=== PATIENT | female | born 1985 | race African-American/Black ===

== ENCOUNTER 2017-10-05 12:57 | Emergency (ER) | payer MEDICAID ==
[~2017-10-05 12:57] MED LIST: DICL75 PO; HYDR-3533 PO
[2017-10-05] MEDS ORDERED: ONDANSETRON ODT 4 MG TAB PO PRN (15:15)
[2017-10-05 15:18] LABS: AUTOMATED NEUTROPHIL # 8.4 TH/MM3 (1.8-7.7); BASOPHIL % 0.3 % (0.0-2.0); EOSINOPHIL % 0.2 % (0.0-4.0); HEMATOCRIT 36.7 % (35.0-46.0); LYMPH % 17.3 % (9.0-44.0); LYMPHOCYTE # 1.9 TH/MM3 (1.0-4.8); MEAN CELL VOLUME 89.3 FL (80.0-100.0); MEAN CORPUSCULAR HEMOGLOBIN 29.3 PG (27.0-34.0); MEAN CORPUSCULAR HGB CONC 32.8 % (32.0-36.0); MEAN PLATELET VOLUME 8.5 FL (7.0-11.0); MONO % 7.6 % (0.0-8.0); MONOCYTE # 0.9 TH/MM3 (0-0.9); NEUT % 74.6 % (16.0-70.0); PLATELET COUNT 243 TH/MM3 (150-450); RED BLOOD COUNT 4.11 MIL/MM3 (4.00-5.30); RED CELL DISTRIBUTION WIDTH 12.6 % (11.6-17.2); WHITE BLOOD COUNT 11.2 TH/MM3 (4.0-11.0)
[2017-10-05 15:18] LABS: BILIRUBIN, URINE NEG (NEG); BLOOD, URINE NEG (NEG); GLUCOSE,URINE NEG (NEG); KETONE, URINE 150 mg/dL (NEG); MUCUS URINE FEW /lpf (OCC); NITRITE,URINE NEG (NEG); PH, URINE 6.5 (5.0-8.5); SQUAMOUS EPITHELIAL CELL URINE 5 /hpf (0-5); URINE COLOR YELLOW (YELLW/STRAW); URINE LEUKOCYTE ESTERASE NEG (NEG)
[2017-10-05 15:31] LABS: BICARBONATE 22.2 MEQ/L (21.0-32.0); CALCIUM 8.8 MG/DL (8.5-10.1); CREATININE 0.61 MG/DL (0.50-1.00)
--- NOTE | 2017-10-05 16:37 | PD ---
HPI Chief Complaint nausea Date Seen: October 05, 2017 Time Seen: 16:26 Travel History International Travel<30 Days: No Contact w/Intl Traveler<30Days: No Known Affected Area: No History of Present Illness HPI pt. is a 31 y/o @ 32 2/7 weeks present of malaise and nausea. pt. states began feeling nauseated yesterday pm. Pt. states had diarrhea/ loose stools. pt. denies fever. was unable to keep any food down. began to feel bad. +FM, no lof/vb. pt. states had irreg ctxs. Weeks Gestation: 32 Para: 0 : 1 History Past Medical History Medical History: Denies Significant Hx Obstetric History Obstetric History , pt. w/ placenta previa Past Surgical History Surgical History: No Previous Surgery Family History Family History: Negative Social History Alcohol Use: No Tobacco Use: No Substance Abuse: No Allergies-Medications (Allergen,Severity, Reaction): Coded Allergies: sumatriptan (Unverified Allergy, Severe, Swelling, 12/27/16) THROAT CLOSES Home Meds Active Scripts Diclofenac Sod (Diclofenac Sodium Dr) 75 Mg Tab, 75 MG PO BID Y for PAIN, #30 TAB Prov:Robby Rodriguez MD 01/05/15 Hydrocodone/Acetaminophen 5 mg/325 mg (Lortab 5 mg/325 mg) 1 Tab, 1 TAB PO Q6H Y for PAIN, #15 TAB Prov:Robby Rodriguez MD 01/05/15 Review of Systems Except as stated in HPI: all other systems reviewed are Neg Physical Exam Narrative GENERAL: Well-nourished, well-developed patient. SKIN: Warm and dry. HEAD: Normocephalic and atraumatic. EYES: No scleral icterus. No injection or drainage. ENT: No nasal drainage noted. Mucous membranes pink. Airway patent. NECK: Supple, trachea midline. No JVD. CARDIOVASCULAR: Regular rate and rhythm without murmurs, gallops, or rubs. RESPIRATORY: Breath sounds equal bilaterally. No accessory muscle use. ABDOMEN/GI: Abdomen soft, non-tender, bowel sounds present, no rebound, no guarding Gravid GENITOURINARY: External Genitalia: intact and normal in appearance Uterine Contractions: irreg FHT's: Category: 1 Reactive: + Variability: mod Decels: none EXTREMITIES: No cyanosis or edema. BACK: Nontender without obvious deformity. No CVA tenderness. NEUROLOGICAL: Awake and alert. Motor and sensory grossly within normal limits. Five out of 5 muscle strength in all muscle groups. Normal speech. Data Data Vital Signs Reviewed: Yes Orders Orders Urinalysis - C+S If Indicated (10/05/17 14:00) Complete Blood Count With Diff (10/05/17 14:00) Basic Metabolic Panel (Bmp) (10/05/17 14:00) Ondansetron Odt (Zofran Odt) (10/05/17 15:15) Labs Laboratory Tests Test 10/05/17 14:15 10/05/17 14:45 Urine Color YELLOW Urine Turbidity CLEAR Urine pH 6.5 Urine Specific [place] 1.012 Urine Protein TRACE Urine Glucose (UA) NEG Urine Ketones 150 Urine Occult Blood NEG Urine Nitrite NEG Urine Bilirubin NEG Urine Urobilinogen LESS THAN 2.0 Urine Leukocyte Esterase NEG Urine WBC 1 Urine Squamous Epithelial Cells 5 Urine Mucus FEW Microscopic Urinalysis Comment CULT NOT INDICATED White Blood Count 11.2 Red Blood Count 4.11 Hemoglobin 12.0 Hematocrit 36.7 Mean Corpuscular Volume 89.3 Mean Corpuscular Hemoglobin 29.3 Mean Corpuscular Hemoglobin Concent 32.8 Red Cell Distribution Width 12.6 Platelet Count 243 Mean Platelet Volume 8.5 Neutrophils (%) (Auto) 74.6 Lymphocytes (%) (Auto) 17.3 Monocytes (%) (Auto) 7.6 Eosinophils (%) (Auto) 0.2 Basophils (%) (Auto) 0.3 Neutrophils # (Auto) 8.4 Lymphocytes # (Auto) 1.9 Monocytes # (Auto) 0.9 Eosinophils # (Auto) 0.0 Basophils # (Auto) 0.0 CBC Comment DIFF FINAL Differential Comment Blood Urea Nitrogen 8 Creatinine 0.61 Random Glucose 63 Calcium Level 8.8 Sodium Level 136 Potassium Level 3.5 Chloride Level 102 Carbon Dioxide Level 22.2 Anion Gap 12 Estimat Glomerular Filtration Rate 140 MDM Medical Record Reviewed: Yes Plan pt. to be d/c to home. pt w/ most viral gastroenterisits. condition d/w pt. all ? answered. pt. to f/u as sched. given precautions for return. Diagnosis Diagnosis: Primary Impression: Gastroenteritis and colitis, viral Additional Impressions: 32 weeks gestation of Placenta previa Disposition: DISCHARGE HOME Patient Instructions: General Instructions Departure Forms: Tests/Procedures Amol Robert Jr., MD October 05, 2017 16:37
== END 2017-10-05 17:37 | disposition home or self-care (01) ==
LOC: HOBED 12:57
DX: A08.4 Viral intestinal infection, unspecified (principal); O44.03 Complete placenta previa NOS or without hemorrhage, third trimester; Z3A.32 32 weeks gestation of pregnancy; Z88.8 Allergy status to other drugs, medicaments and biological substances
CPT/HCPCS: 36415; 59025; 80048; 81001; 85025

== ENCOUNTER 2017-10-19 01:25 | Inpatient (IN) | payer MEDICAID ==
[~2017-10-19] VITALS: Ht 157.5 cm; Wt 71.0 kg
[2017-10-19] MEDS ORDERED: BUTA1CAP PO (03:19)
[2017-10-19] MEDS ORDERED: PRENTAB7 (03:19)
[2017-10-19] MEDS ORDERED: ZOFR4TAB PO (03:20)
--- NOTE | 2017-10-19 03:54 | PD ---
HPI Chief Complaint Vaginal Bleeding Travel History International Travel<30 Days: No Contact w/Intl Traveler<30Days: No Known Affected Area: No History of Present Illness HPI 32-year-old , IUP at 35.1 care complicated by care at licensed midwifery practice, posterior placenta previa Patient presents complaining of spotting that started at 1230 this morning. She reports that she suddenly passed small clots and had an increase in her bleeding prior to arrival. She reports "a lot" of bleeding at home. She denies recent intercourse. She denies any precipitating or aggravating factors. She denies any alleviating factors. She denies any gush of fluid or leaking of fluid. She reports good movement. She denies any regular or painful contractions. She reports some burning in her lower abdomen and back spasms. She has no other obstetrical complaints today. Weeks Gestation: 35 Para: 0 : 1 History Past Medical History Narrative Medical Asthma Obstetric History Obstetric History Placenta previa Past Surgical History Narrative Surgical Denies Family History Narrative Family History Patient is adopted Social History Alcohol Use: No Tobacco Use: No Substance Abuse: No Allergies-Medications (Allergen,Severity, Reaction): Coded Allergies: sumatriptan (Unverified Allergy, Severe, Swelling, 10/19/17) THROAT CLOSES Home Meds Reported Medications Ondansetron (Zofran) 4 Mg Tab, 4 MG PO Q6HR Y for NAUSEA OR VOMITING, TAB 0 Refills 10/19/17 Pnv No.95/Ferrous Fum/Folic AC ( Vitamins Tablet) 28 Mg Iron-800 Mcg Tablet 10/19/17 Uahwdhjync-Eiknwaqdumhcx-Zmqfnbxx (Fioricet) 50-300-40 Mg Cap, 1 CAP PO Q4H Y for HEADACHE, CAP 0 Refills 10/19/17 Discontinued Scripts Diclofenac Sod (Diclofenac Sodium Dr) 75 Mg Tab, 75 MG PO BID Y for PAIN, #30 TAB Prov:Robby Rodriguez MD 01/05/15 Hydrocodone/Acetaminophen 5 mg/325 mg (Lortab 5 mg/325 mg) 1 Tab, 1 TAB PO Q6H Y for PAIN, #15 TAB Prov:Robby Rodriguez MD 01/05/15 Review of Systems Except as stated in HPI: all other systems reviewed are Neg Physical Exam Narrative GENERAL: Well-nourished, well-developed patient. SKIN: Warm and dry. HEAD: Normocephalic and atraumatic. EYES: No scleral icterus. No injection or drainage. ENT: No nasal drainage noted. Mucous membranes pink. Airway patent. NECK: Supple, trachea midline. No JVD. CARDIOVASCULAR: Regular rate and rhythm without murmurs, gallops, or rubs. RESPIRATORY: Breath sounds equal bilaterally. No accessory muscle use. BREASTS: Deferred ABDOMEN/GI: Abdomen soft, non-tender, bowel sounds present, no rebound, no guarding Gravid GENITOURINARY: External Genitalia: intact and normal in appearance. Normal BUS. There is thin, dark appearing blood noted on the bed pad and perineum. Speculum examination was performed which revealed additional dark, thin appearing blood, approximately 100cc with 2 clots in the vaginal vault. This was evacuated and there was no further pooling or leaking noted from cervical os and valsalva was negative. There was no active bleeding and no significant amount of blood/dark bloody fluid noted in the COSMO except a small amount of dark blood on her pad over observation of about 3 hours. Amnisure was positive, but contaminated with blood. A ferning test was performed and was negative. Cervix appears visually closed. No cervical or vaginal masses noted, no other discharge noted. FHT's: heart tones are in the 130s with moderate long-term variability, good accelerations, no decelerations noted. The patient has a reactive NST and category 1 heart rate tracing. EXTREMITIES: No cyanosis or edema. BACK: Nontender without obvious deformity. NEUROLOGICAL/Musculoskeletal: Awake and alert. Motor and sensory grossly within normal limits. Grossly muscle strength in all muscle groups. Normal speech. Grossly normal ROM. Data Data Orders Orders Ob (2e) Additional Admit Info (10/19/17 03:23) Admit To Inpatient (10/19/17 ) Diet Npo (10/19/17 Breakfast) Vital Signs (Adult) [id number] AWAKE (10/19/17 03:50) Heart (10/19/17 03:50) ^ Monitor (10/19/17 03:50) Activity Bed Rest With Brp (10/19/17 03:50) Complete Blood Count With Diff (10/19/17 03:50) Basic Metabolic Panel (Bmp) (10/19/17 03:50) Hepatic Functional Panel (10/19/17 03:50) Urinalysis - C+S If Indicated (10/19/17 03:50) Acetaminophen (Tylenol) (10/19/17 04:00) Suacfnfp-Lnw-Cavhe-Iron Prenat (Stuartna (10/19/17 09:00) Docusate Sodium (Colace) (10/19/17 09:00) Al-Mag Hy-Si 40-40-4 Mg/Ml Liq (Mag-Al P (10/19/17 04:00) Sodium Chloride 0.9% Flush (Ns Flush) (10/19/17 09:00) Sodium Chloride 0.9% Flush (Ns Flush) (10/19/17 04:00) Zolpidem (Ambien) (10/19/17 04:00) Ondansetron Odt (Zofran Odt) (10/19/17 04:00) Us Ob Limited (10/19/17 03:50) Ob/Psych Drug Screen, Urine (10/19/17 03:50) Ferrous Sulfate (Ferrous Sulfate) (10/19/17 09:00) Betamethasone Inj (Celestone Soluspan In (10/19/17 04:00) Inpatient Certification (10/19/17 ) MDM Plan Assessment/plan: 1. IUP at 35.1 2. Posterior placenta previa with vaginal bleeding: The patient was noted to have dark blood on her examination but no evidence of active or brisk bleeding at the time of evaluation. The blood appeared dark and was admixed with clots. Will admit for placenta previa with vaginal bleeding, CBC ordered, will obtain an ultrasound in the a.m. to further evaluate the reported previa. We discussed at length that should she need to be delivered, a delivery would be required for placenta previa. We discussed the small risks of increta/ percreta although the patient does not have other risk factors. We discussed the risks, benefits, and alternatives to section including but not limited to pain, infection, bleeding, injury to other organs like the bladder/ bowel/nerves/vessels, injury to the baby, need for repeat operation, need for blood transfusion, need for hysterectomy, wound infection/breakdown, and other possible risks. We also discussed that if the previa has partially resolved and is considered low lying, she may be a candidate for a trial of labor. 3. Equivocal PPROM testing: Amnisure of the fluid was positive, however this could be due to the contaminating blood. The Ferning test was negative, there was a negative Valsalva, and no additional pooling in the vaginal vault. There is no concrete evidence of PP PROM at this time. Will evaluate SIMONE from ultrasound and could consider repeat testing when bleeding has subsided, unless there is subsequent evidence of rupture of membranes 4. well-being: Reassuring testing with reactive NST and category 1 heart rate tracing. Will continue to monitor the fetus continuously 5. prematurity: Will administer betamethasone 12 mg which has been ordered for 2 doses. Maris Moctezuma MD Oct 19, 2017 03:54
--- NOTE | 2017-10-19 03:55 | PD ---
History of Present Illness History of Present Illness NST report Indications: IUP at 35 weeks, polysubstance abuse, placenta previa with vaginal bleeding heart tones are in the 130s with moderate long-term variability, good accelerations, no decelerations noted. The heart rate tracing is reactive and reassuring. This is a category 1 heart rate tracing which is appropriate for gestational age. Follow-up: We will continue monitoring Final diagnosis: IUP at 35 weeks, polysubstance abuse, placenta previa with vaginal bleeding, reassuring testing. Maris Moctezuma MD Oct 19, 2017 03:55
[2017-10-19] MEDS ORDERED: ZOLPIDEM TARTRATE 5 MG TAB PO PRN (04:00)
[2017-10-19] MEDS ORDERED: ALUMINUM/MAGNESIUM/SIMETH 30 ML CUP PO PRN (04:00)
[2017-10-19] MEDS ORDERED: SODIUM CHLORIDE 0.9% FLUSH 10 ML FLUSH IV FLUSH PRN (04:00)
[2017-10-19 04:04] LABS: AUTOMATED NEUTROPHIL # 10.7 TH/MM3 (1.8-7.7); BASOPHIL # 0.1 TH/MM3 (0-0.2); BASOPHIL % 0.5 % (0.0-2.0); EOSINOPHIL # 0.2 TH/MM3 (0-0.4); EOSINOPHIL % 1.2 % (0.0-4.0); HEMATOCRIT 32.3 % (35.0-46.0); HEMOGLOBIN 10.8 GM/DL (11.6-15.3); LYMPH % 17.6 % (9.0-44.0); LYMPHOCYTE # 2.6 TH/MM3 (1.0-4.8); MEAN CELL VOLUME 89.5 FL (80.0-100.0); MEAN CORPUSCULAR HGB CONC 33.6 % (32.0-36.0); MEAN PLATELET VOLUME 8.4 FL (7.0-11.0); MONO % 7.2 % (0.0-8.0); NEUT % 73.5 % (16.0-70.0); PLATELET COUNT 229 TH/MM3 (150-450); RED BLOOD COUNT 3.61 MIL/MM3 (4.00-5.30); RED CELL DISTRIBUTION WIDTH 13.1 % (11.6-17.2); WHITE BLOOD COUNT 14.5 TH/MM3 (4.0-11.0)
[2017-10-19 04:18] LABS: BILIRUBIN, URINE NEG (NEG); BLOOD, URINE LARGE (NEG); GLUCOSE,URINE NEG (NEG); KETONE, URINE NEG (NEG); NITRITE,URINE NEG (NEG); PH, URINE 7.5 (5.0-8.5); SQUAMOUS EPITHELIAL CELL URINE 4 /hpf (0-5); URINE COLOR LIGHT-ORANGE (YELLW/STRAW); URINE LEUKOCYTE ESTERASE NEG (NEG)
[2017-10-19 04:33] LABS: ALBUMIN 2.9 GM/DL (3.4-5.0); BICARBONATE 20.5 MEQ/L (21.0-32.0); CALCIUM 9.1 MG/DL (8.5-10.1); CREATININE 0.87 MG/DL (0.50-1.00); DIRECT BILIRUBIN ADULT 0.1 MG/DL (0.0-0.2)
[2017-10-19] MEDS: BETAMETHASONE SOD PHOS/ACETATE SUSP 30 MG/5 ML VIAL IM SCH (04:33)
[2017-10-19 04:36] LABS: INDIRECT BILIRUBIN 0.1 MG/DL (0.0-0.8); TOTAL BILIRUBIN ADULT 0.2 MG/DL (0.2-1.0); TOTAL PROTEIN 6.7 GM/DL (6.4-8.2)
[2017-10-19] MEDS: ACETAMINOPHEN 325 MG TAB PO PRN (04:41)
--- NOTE | 2017-10-19 05:33 | HHI.HP ---
History & Physical H&P Patient Name: Gini Lee Unit Number: [id number] Date of : 1985 Patient Status: Admitted Inpatient (obs) Attending Doctor: Maris Moctezuma MD HPI HPI Chief Complaint Vaginal Bleeding Travel History International Travel<30 Days: No Contact w/Intl Traveler<30Days: No Known Affected Area: No History of Present Illness HPI 32-year-old , IUP at 35.1 care complicated by care at licensed midwifery practice, posterior placenta previa Patient presents complaining of spotting that started at 1230 this morning. She reports that she suddenly passed small clots and had an increase in her bleeding prior to arrival. She reports "a lot" of bleeding at home. She denies recent intercourse. She denies any precipitating or aggravating factors. She denies any alleviating factors. She denies any gush of fluid or leaking of fluid. She reports good movement. She denies any regular or painful contractions. She reports some burning in her lower abdomen and back spasms. She has no other obstetrical complaints today. Weeks Gestation: 35 Para: 0 : 1 History (Limited) History Past Medical History Narrative Medical Asthma Obstetric History Obstetric History Placenta previa Past Surgical History Narrative Surgical Denies Family History Narrative Family History Patient is adopted Social History Alcohol Use: No Tobacco Use: No Substance Abuse: No Allergies-Medications Allergies-Medications (Allergen,Severity, Reaction): Coded Allergies: sumatriptan (Unverified Allergy, Severe, Swelling, 10/19/17) THROAT CLOSES Home Meds Reported Medications Ondansetron (Zofran) 4 Mg Tab, 4 MG PO Q6HR Y for NAUSEA OR VOMITING, TAB 0 Refills 10/19/17 Pnv No.95/Ferrous Fum/Folic AC ( Vitamins Tablet) 28 Mg Iron-800 Mcg Tablet 10/19/17 Mszlofpzka-Fsvctpdjwfewj-Wgnwhkbz (Fioricet) 50-300-40 Mg Cap, 1 CAP PO Q4H Y for HEADACHE, CAP 0 Refills 10/19/17 Discontinued Scripts Diclofenac Sod (Diclofenac Sodium Dr) 75 Mg Tab, 75 MG PO BID Y for PAIN, #30 TAB Prov:Robby Rodriguez MD 01/05/15 Hydrocodone/Acetaminophen 5 mg/325 mg (Lortab 5 mg/325 mg) 1 Tab, 1 TAB PO Q6H Y for PAIN, #15 TAB Prov:Robby Rodriguez MD 01/05/15 ROS Review of Systems Except as stated in HPI: all other systems reviewed are Neg Physical Exam Physical Exam Narrative GENERAL: Well-nourished, well-developed patient. SKIN: Warm and dry. HEAD: Normocephalic and atraumatic. EYES: No scleral icterus. No injection or drainage. ENT: No nasal drainage noted. Mucous membranes pink. Airway patent. NECK: Supple, trachea midline. No JVD. CARDIOVASCULAR: Regular rate and rhythm without murmurs, gallops, or rubs. RESPIRATORY: Breath sounds equal bilaterally. No accessory muscle use. BREASTS: Deferred ABDOMEN/GI: Abdomen soft, non-tender, bowel sounds present, no rebound, no guarding Gravid GENITOURINARY: External Genitalia: intact and normal in appearance. Normal BUS. There is thin, dark appearing blood noted on the bed pad and perineum. Speculum examination was performed which revealed additional dark, thin appearing blood, approximately 100cc with 2 clots in the vaginal vault. This was evacuated and there was no further pooling or leaking noted from cervical os and valsalva was negative. There was no active bleeding and no significant amount of blood/dark bloody fluid noted in the COSMO except a small amount of dark blood on her pad over observation of about 3 hours. Amnisure was positive, but contaminated with blood. A ferning test was performed and was negative. Cervix appears visually closed. No cervical or vaginal masses noted, no other discharge noted. FHT's: heart tones are in the 130s with moderate long-term variability, good accelerations, no decelerations noted. The patient has a reactive NST and category 1 heart rate tracing. EXTREMITIES: No cyanosis or edema. BACK: Nontender without obvious deformity. NEUROLOGICAL/Musculoskeletal: Awake and alert. Motor and sensory grossly within normal limits. Grossly muscle strength in all muscle groups. Normal speech. Grossly normal ROM. Data Data Data Orders Orders Ob (2e) Additional Admit Info (10/19/17 03:23) Admit To Inpatient (10/19/17 ) Diet Npo (10/19/17 Breakfast) Vital Signs (Adult) [id number] AWAKE (10/19/17 03:50) Heart (10/19/17 03:50) ^ Monitor (10/19/17 03:50) Activity Bed Rest With Brp (10/19/17 03:50) Complete Blood Count With Diff (10/19/17 03:50) Basic Metabolic Panel (Bmp) (10/19/17 03:50) Hepatic Functional Panel (10/19/17 03:50) Urinalysis - C+S If Indicated (10/19/17 03:50) Acetaminophen (Tylenol) (10/19/17 04:00) Xkfkopui-Fnn-Gsspr-Iron Prenat (Stuartna (10/19/17 09:00) Docusate Sodium (Colace) (10/19/17 09:00) Al-Mag Hy-Si 40-40-4 Mg/Ml Liq (Mag-Al P (10/19/17 04:00) Sodium Chloride 0.9% Flush (Ns Flush) (10/19/17 09:00) Sodium Chloride 0.9% Flush (Ns Flush) (10/19/17 04:00) Zolpidem (Ambien) (10/19/17 04:00) Ondansetron Odt (Zofran Odt) (10/19/17 04:00) Us Ob Limited (10/19/17 03:50) Ob/Psych Drug Screen, Urine (10/19/17 03:50) Ferrous Sulfate (Ferrous Sulfate) (10/19/17 09:00) Betamethasone Inj (Celestone Soluspan In (10/19/17 04:00) Inpatient Certification (10/19/17 ) MDM MDM Plan Assessment/plan: 1. IUP at 35.1 2. Posterior placenta previa with vaginal bleeding: The patient was noted to have dark blood on her examination but no evidence of active or brisk bleeding at the time of evaluation. The blood appeared dark and was admixed with clots. Will admit for placenta previa with vaginal bleeding, CBC ordered, will obtain an ultrasound in the a.m. to further evaluate the reported previa. We discussed at length that should she need to be delivered, a delivery would be required for placenta previa. We discussed the small risks of increta/ percreta although the patient does not have other risk factors. We discussed the risks, benefits, and alternatives to section including but not limited to pain, infection, bleeding, injury to other organs like the bladder/ bowel/nerves/vessels, injury to the baby, need for repeat operation, need for blood transfusion, need for hysterectomy, wound infection/breakdown, and other possible risks. We also discussed that if the previa has partially resolved and is considered low lying, she may be a candidate for a trial of labor. 3. Equivocal PPROM testing: Amnisure of the fluid was positive, however this could be due to the contaminating blood. The Ferning test was negative, there was a negative Valsalva, and no additional pooling in the vaginal vault. There is no concrete evidence of PP PROM at this time. Will evaluate SIMONE on ultrasound and could consider repeat testing when bleeding has subsided, unless there is subsequent evidence of rupture of membranes 4. well-being: Reassuring testing with reactive NST and category 1 heart rate tracing. Will continue to monitor the fetus continuously 5. prematurity: Will administer betamethasone 12 mg which has been ordered for 2 doses. 6. UDS: positive for benzodiazepines and THC. 7. A+ Maris Moctezuma MD Oct 19, 2017 03:54 Maris Moctezuma MD Oct 19, 2017 05:33
[2017-10-19] MEDS: SODIUM CHLORIDE 0.9% FLUSH 10 ML FLUSH IV FLUSH SCH ×2 (09:00→21:00)
[2017-10-19] MEDS: MULTIVIT/MIN/PREN/FOL AC/IRON PRENATAL TAB PO SCH (09:22)
[2017-10-19] MEDS: FERROUS SULFATE 325 MG (65 MG ELEMENTAL IRON) TAB PO SCH (09:22)
[2017-10-19] MEDS: DOCUSATE SODIUM 100 MG CAP PO SCH (09:22)
--- NOTE | 2017-10-19 11:10 | PD.OB.ANTE ---
Subjective Interval History Pt was admitted overnight for vaginal bleeding and ?PPROM. She had a +amnisure but there was blood present. US this morning confirms a complete previa. SIMONE 15.9 (2wks ago was 16). PPROM likely ruled out. Pt has been experiencing intermittent painful ctx. She reports continued VB when she wipes. She is presently on bedrest. Antepartum ROS: Reports: Vaginal bleeding, Contractions Objective Lab & Micro Results Test 10/19/17 01:49 10/19/17 03:45 White Blood Count 14.5 TH/MM3 Red Blood Count 3.61 MIL/MM3 Hemoglobin 10.8 GM/DL Hematocrit 32.3 % Mean Corpuscular Volume 89.5 FL Mean Corpuscular Hemoglobin 30.0 PG Mean Corpuscular Hemoglobin Concent 33.6 % Red Cell Distribution Width 13.1 % Platelet Count 229 TH/MM3 Mean Platelet Volume 8.4 FL Neutrophils (%) (Auto) 73.5 % Lymphocytes (%) (Auto) 17.6 % Monocytes (%) (Auto) 7.2 % Eosinophils (%) (Auto) 1.2 % Basophils (%) (Auto) 0.5 % Neutrophils # (Auto) 10.7 TH/MM3 Lymphocytes # (Auto) 2.6 TH/MM3 Monocytes # (Auto) 1.0 TH/MM3 Eosinophils # (Auto) 0.2 TH/MM3 Basophils # (Auto) 0.1 TH/MM3 CBC Comment DIFF FINAL Differential Comment Blood Urea Nitrogen 9 MG/DL Creatinine 0.87 MG/DL Random Glucose 103 MG/DL Total Protein 6.7 GM/DL Albumin 2.9 GM/DL Calcium Level 9.1 MG/DL Alkaline Phosphatase 138 U/L Aspartate Amino Transf (AST/SGOT) 17 U/L Alanine Aminotransferase (ALT/SGPT) 26 U/L Total Bilirubin 0.2 MG/DL Direct Bilirubin 0.1 MG/DL Sodium Level 139 MEQ/L Potassium Level 3.9 MEQ/L Chloride Level 106 MEQ/L Carbon Dioxide Level 20.5 MEQ/L Anion Gap 13 MEQ/L Estimat Glomerular Filtration Rate 93 ML/MIN Indirect Bilirubin 0.1 MG/DL Urine Color LIGHT-ORANGE Urine Turbidity HAZY Urine pH 7.5 Urine Specific [place] 1.011 Urine Protein 30 mg/dL Urine Glucose (UA) NEG mg/dL Urine Ketones NEG mg/dL Urine Occult Blood LARGE Urine Nitrite NEG Urine Bilirubin NEG Urine Urobilinogen LESS THAN 2.0 MG/DL Urine Leukocyte Esterase NEG Urine RBC /hpf Urine WBC 11 /hpf Urine Squamous Epithelial Cells 4 /hpf Microscopic Urinalysis Comment CULTURE INDICATED Urine Opiates Screen NEG Urine Barbiturates Screen POS Urine Amphetamines Screen NEG Urine Benzodiazepines Screen NEG Urine Cocaine Screen NEG Urine Cannabinoids Screen POS Date/Time Source Procedure Growth Status 10/19/17 03:45 Urine Clean Catch Urine Culture Pending Received Physical Exam GENERAL: Well-nourished, well-developed patient. RESPIRATORY: No accessory muscle use. ABDOMEN/GI: Abdomen soft, non-tender. FHT's: cat 1, +accels, no decels, moderate variability [place]: irregular ctx q4-6m Assessment and Plan Assessment and Plan 32y/o G1 @ 35.1wks with VB, ?PPROM, ctx. -- US performed confirms complete previa; pt for 1' cs at 37wks per MFM or sooner if another episode of VB occurs, labor, NRFHTs -- SIMONE 15.9, stable from prior scan; PPROM unlikely -- s/p BMZ x1 early this morning -- CEFM/toco, IVF, NPO at this time -- strict pad counts -- no tocolysis Nelson Bernard MD Oct 19, 2017 11:09
[2017-10-19] MEDS: ONDANSETRON ODT 4 MG TAB PO PRN ×2 (15:30→20:00)
[2017-10-19] MEDS: LACTATED RINGER'S 1000 ML INJ 1,000 ML IV SCH (23:30)
[2017-10-20] MEDS: BETAMETHASONE SOD PHOS/ACETATE SUSP 30 MG/5 ML VIAL IM SCH (04:00)
[2017-10-20] MEDS: LACTATED RINGER'S 1000 ML INJ 1,000 ML IV SCH (07:30)
--- NOTE | 2017-10-20 08:56 | PD.OB.ANTE ---
Subjective Diagnosis: (1) Placenta previa Interval History Patient reports improvement in contraction pain overnight with the Roxicodone. She was able to sleep during the night. She continues to report some bleeding when she goes to the restroom. Small amount on the tissue when she wipes as well as some blood in the toilet. No significant change from yesterday. Patient does have some nausea but no vomiting, no chest pain or shortness of breath, no change in her lower abdominal pain that occurs with contractions. Objective Lab & Micro Results Date/Time Source Procedure Growth Status 10/19/17 03:45 Urine Clean Catch Urine Culture Pending Received Physical Exam GENERAL: Well-nourished, well-developed patient. CARDIOVASCULAR: Regular rate and rhythm without murmurs, gallops, or rubs. RESPIRATORY: Breath sounds equal bilaterally. No accessory muscle use. ABDOMEN/GI: Abdomen soft, non-tender. Fundus: 35 GENITOURINARY: External Genitalia: intact and normal in appearance Uterine Contractions: Currently no contractions on the monitor FHT's: Category: 1 Baseline: 135 Reactive: yes Variability: moderate Decels: none EXTREMITIES: No cyanosis or edema, non-tender, without signs of DVT. Assessment and Plan Assessment and Plan 32y/o G1 @ 35.2wks that presented with vaginal bleeding. Ultrasound showing complete placenta previa. Initial MD sure was positive, but SIMONE is stable at 15.9 so PPROM is unlikely. -- Continues to have VB when using the restroom. No significant change from yesterday. Repeating CBC today -- US performed confirms complete previa; pt for 1' cs at 37wks per MFM or sooner if another significant VB occurs, labor, NRFHTs -- s/p BMZ x2 -- IVF, giving regular diet now -- Roxicodone for pain -- strict pad counts -- no tocolysis Claudy Guido MD R1 Oct 20, 2017 08:56
[2017-10-20] MEDS: MULTIVIT/MIN/PREN/FOL AC/IRON PRENATAL TAB PO SCH (08:59)
[2017-10-20] MEDS: FERROUS SULFATE 325 MG (65 MG ELEMENTAL IRON) TAB PO SCH ×2 (08:59→21:44)
[2017-10-20] MEDS: DOCUSATE SODIUM 100 MG CAP PO SCH (08:59)
[2017-10-20 10:40] LABS: BASOPHIL % 0.1 % (0.0-2.0); HEMATOCRIT 32.4 % (35.0-46.0); HEMOGLOBIN 10.7 GM/DL (11.6-15.3); LYMPH % 6.9 % (9.0-44.0); LYMPHOCYTE # 1.2 TH/MM3 (1.0-4.8); MEAN CORPUSCULAR HEMOGLOBIN 29.3 PG (27.0-34.0); MEAN CORPUSCULAR HGB CONC 32.9 % (32.0-36.0); MEAN PLATELET VOLUME 8.3 FL (7.0-11.0); MONO % 2.9 % (0.0-8.0); MONOCYTE # 0.5 TH/MM3 (0-0.9); NEUT % 90.1 % (16.0-70.0); PLATELET COUNT 233 TH/MM3 (150-450); RED BLOOD COUNT 3.65 MIL/MM3 (4.00-5.30); RED CELL DISTRIBUTION WIDTH 13.1 % (11.6-17.2); WHITE BLOOD COUNT 16.7 TH/MM3 (4.0-11.0)
[2017-10-20] MEDS: ACETAMINOPHEN 325 MG TAB PO PRN (12:24)
[2017-10-20] MEDS: SODIUM CHLORIDE 0.9% FLUSH 10 ML FLUSH IV FLUSH SCH (21:00)
[2017-10-20] MEDS ORDERED: PROCHLORPERAZINE INJ 10 MG/2 ML VIAL IV PRN (23:30)
[2017-10-21] MEDS: LACTATED RINGER'S 1000 ML INJ 1,000 ML IV SCH ×2 (07:30→16:14)
--- NOTE | 2017-10-21 08:15 | PD.OB.ANTE ---
Subjective Diagnosis: (1) Placenta previa Diagnosis: Principal Interval History Patient's had only mild spotting since yesterday and she was having that yesterday as well there has been no significant change in that. She is not megan at this time she is having less crampiness today than she did yesterday, baby is active the NST's been reactive Objective Lab & Micro Results Test 10/20/17 10:11 White Blood Count 16.7 TH/MM3 Red Blood Count 3.65 MIL/MM3 Hemoglobin 10.7 GM/DL Hematocrit 32.4 % Mean Corpuscular Volume 89.0 FL Mean Corpuscular Hemoglobin 29.3 PG Mean Corpuscular Hemoglobin Concent 32.9 % Red Cell Distribution Width 13.1 % Platelet Count 233 TH/MM3 Mean Platelet Volume 8.3 FL Neutrophils (%) (Auto) 90.1 % Lymphocytes (%) (Auto) 6.9 % Monocytes (%) (Auto) 2.9 % Eosinophils (%) (Auto) 0.0 % Basophils (%) (Auto) 0.1 % Neutrophils # (Auto) 15.0 TH/MM3 Lymphocytes # (Auto) 1.2 TH/MM3 Monocytes # (Auto) 0.5 TH/MM3 Eosinophils # (Auto) 0.0 TH/MM3 Basophils # (Auto) 0.0 TH/MM3 CBC Comment DIFF FINAL Differential Comment Date/Time Source Procedure Growth Status 10/19/17 03:45 Urine Clean Catch Urine Culture - Preliminary IMMATURE GROWTH - REINCUBATE Resulted Physical Exam GENERAL: Well-nourished, well-developed patient. CARDIOVASCULAR: Regular rate and rhythm without murmurs, gallops, or rubs. RESPIRATORY: Breath sounds equal bilaterally. No accessory muscle use. ABDOMEN/GI: Abdomen soft, non-tender. Fundus: [-] GENITOURINARY: FHT's: Category: [1-] Baseline: [133-] Reactive: [-R] Variability: [-mod] Decels: [-] EXTREMITIES: No cyanosis or edema, non-tender, without signs of DVT. Assessment and Plan Problem List: (1) Placenta previa ICD Codes: O44.00 - Complete placenta previa NOS or without hemorrhage, unspecified trimester Assessment and Plan 32y/o G1 @ 35.2wks that presented with vaginal bleeding. Ultrasound showing complete placenta previa. Initial MD sure was positive, but SIMONE is stable at 15.9 so PPROM is unlikely. -- Continues to have VB when using the restroom. No significant change from yesterday. Repeating CBC today -- US performed confirms complete previa; pt for 1' cs at 37wks per MFM or sooner if another significant VB occurs, labor, NRFHTs -- s/p BMZ x2 -- IVF, giving regular diet now -- Roxicodone for pain -- strict pad counts -- no tocolysis Sekou Toussaint II, MD Oct 21, 2017 08:15
[2017-10-21] MEDS: SODIUM CHLORIDE 0.9% FLUSH 10 ML FLUSH IV FLUSH SCH ×2 (08:39→21:00)
[2017-10-21] MEDS: MULTIVIT/MIN/PREN/FOL AC/IRON PRENATAL TAB PO SCH (08:39)
[2017-10-21] MEDS: FERROUS SULFATE 325 MG (65 MG ELEMENTAL IRON) TAB PO SCH ×2 (08:39→21:00)
[2017-10-21] MEDS: DOCUSATE SODIUM 100 MG CAP PO SCH (08:39)
--- NOTE | 2017-10-21 09:47 | HHI.PR ---
Subjective Remarks [facility] 32-year-old with IUP at 35.3 admitted for placenta previa with vaginal bleeding. She reports that her bleeding has improved and is only spotting at this time. She denies any frequent contractions or cramping. She reports good movement today. She is aware that should she enter active labor or have continued heavy bleeding, she would be delivered by delivery. We discussed the benefits of prolonging the until 37 weeks which would improve lung maturity. She is received her course of betamethasone. All of the patient's questions were answered. heart tones are reassuring and we will continue monitoring. Objective Result Diagram: 10/20/17 1011 10/19/17 0149 Maris Moctezuma MD Oct 21, 2017 09:47
[2017-10-21] MEDS ORDERED: LACTATED RINGER'S 1000 ML INJ 1,000 ML IV ONE (14:15)
--- NOTE | 2017-10-21 20:13 | HHI.PR ---
Subjective Remarks OB 32-year-old with IUP at 35.3 admitted for placenta previa with vaginal bleeding at 35.1. She reports that her bleeding has improved and is only spotting at this time. She denies any frequent contractions or cramping. She reports good movement today. She is aware that should she enter active labor or have continued heavy bleeding, she would be delivered by delivery but if not, we will await delivery until 37 weeks as per [facility] recommendations. We again discussed with patient and family members the benefits of prolonging the until 37 weeks which would improve lung maturity. She has received her course of betamethasone and is overall comfortable on bedrest. She reports occasional cramping. All of the patient's questions were answered. Rx vistaril for rest as benadryl caused restless legs. heart tones are reassuring and we will continue monitoring. Objective Result Diagram: 10/20/17 1011 10/19/17 0149 Maris Moctezuma MD Oct 21, 2017 20:13
[2017-10-21] MEDS ORDERED: hydrOXYzine PAMOATE 25 MG CAP PO PRN (21:15)
[2017-10-22] VITALS (61 sets, daily range): BP systolic 108–129; BP diastolic 59–71; PULSE 60–216; RESP 17–18; TEMP 97.9–98.7
--- NOTE | 2017-10-22 07:56 | PD.OB.ANTE ---
Subjective Diagnosis: (1) Placenta previa Diagnosis: Principal (2) Vaginal bleeding in Diagnosis: Principal Interval History Patient denies any new complaints. She reports spotting is at baseline. Patient reports occasional, regular cramping. She denies any regular contractions, leakage of fluid. movement is at baseline. Antepartum ROS: Reports: Vaginal bleeding, movement normal, Denies: New complaints, Loss of fluid, Contractions Objective Vital Signs 117/62, 63, 17, 97.9 Lab & Micro Results Date/Time Source Procedure Growth Status 10/19/17 03:45 Urine Clean Catch Urine Culture - Final Gardnerella Vaginalis Complete Physical Exam GENERAL: Well-nourished, well-developed patient. CARDIOVASCULAR: Regular rate and rhythm without murmurs, gallops, or rubs. RESPIRATORY: Breath sounds equal bilaterally. No accessory muscle use. ABDOMEN/GI: Abdomen soft, non-tender. GENITOURINARY: External Genitalia: Uterine Contractions: [none] FHT's: Category: Category 1 Baseline: 135 Reactive: Reactive Variability: Moderate Decels: None EXTREMITIES: No cyanosis or edema, non-tender, without signs of DVT. Assessment and Plan Problem List: (1) Placenta previa ICD Codes: O44.00 - Complete placenta previa NOS or without hemorrhage, unspecified trimester Qualifiers: Qualified Codes: O44.03 - Complete placenta previa nos or without hemorrhage , third trimester Assessment and Plan 32 y/o G1 @ 35.4 wks who presented with vaginal bleeding. Ultrasound showing complete placenta previa. Initial amnisure was positive, but SIMONE is stable at 15.9 so PPROM is unlikely. -- Continues to have VB when using the restroom. No significant change from yesterday. Hgb stable. CBC shows increasing WBCs with increasing left shift. Urine culture grew >100,000 CFU of gardnerella vaginalis. Plan to treat with metronidazole 500 mg po bid x 7d. -- US performed confirms complete previa; pt for 1' c/s at 37wks per MFM or sooner if another significant VB occurs, labor, NRFHTs -- s/p BMZ x2 -- IVF, giving regular diet now -- Roxicodone for pain -- strict pad counts -- no tocolysis Keith Leyva MD R2 Oct 22, 2017 07:56
--- NOTE | 2017-10-22 08:37 | HHI.PR ---
Subjective Remarks [facility] NST report Indications: IUP at 35w, complete placenta previa, vaginal bleeding heart rate baseline in the 130s with moderate emt intermediate variability, good accelerations, no decelerations noted with a reactive NST and category 1 heart rate tracing Follow up with continued monitoring Final diagnosis:IUP at 35w, complete placenta previa, vaginal bleeding, reassuring testing Objective Result Diagram: 10/20/17 1011 10/19/17 0149 Maris Moctezuma MD Oct 22, 2017 08:37
[2017-10-22] MEDS: SODIUM CHLORIDE 0.9% FLUSH 10 ML FLUSH IV FLUSH SCH ×2 (09:00→21:48)
[2017-10-22] MEDS: DOCUSATE SODIUM 100 MG CAP PO SCH (09:03)
[2017-10-22] MEDS: FERROUS SULFATE 325 MG (65 MG ELEMENTAL IRON) TAB PO SCH ×2 (09:03→21:00)
[2017-10-22] MEDS: MULTIVIT/MIN/PREN/FOL AC/IRON PRENATAL TAB PO SCH (09:03)
[2017-10-22] MEDS: metroNIDAZOLE 500 MG TAB PO SCH ×2 (09:04→21:47)
[2017-10-22] MEDS: ACETAMINOPHEN 325 MG TAB PO PRN (12:28)
[2017-10-22 13:11] LABS: HEMATOCRIT 32.4 % (35.0-46.0); HEMOGLOBIN 10.9 GM/DL (11.6-15.3); MEAN CELL VOLUME 89.6 FL (80.0-100.0); MEAN CORPUSCULAR HEMOGLOBIN 30.1 PG (27.0-34.0); MEAN CORPUSCULAR HGB CONC 33.6 % (32.0-36.0); MEAN PLATELET VOLUME 8.2 FL (7.0-11.0); PLATELET COUNT 211 TH/MM3 (150-450); RED BLOOD COUNT 3.62 MIL/MM3 (4.00-5.30); RED CELL DISTRIBUTION WIDTH 13.2 % (11.6-17.2); WHITE BLOOD COUNT 9.8 TH/MM3 (4.0-11.0)
[2017-10-23] VITALS (112 sets, daily range): BP systolic 115–127; BP diastolic 60–80; PULSE 56–118; RESP 16–18; TEMP 98.2–99
--- NOTE | 2017-10-23 07:48 | PD.OB.ANTE ---
Subjective Diagnosis: (1) Placenta previa (2) Vaginal bleeding in Diagnosis: Principal Interval History Patient now 35-weeks and 5 days with placenta previa that has required inpatient care, I was called the room this morning at 5 AM because the patient was having intractable pain I examined the patient she did have a great deal more tenderness lower uterine segment and noted on prior exam and I felt that the time she needed to, at this point, be delivered by however the patient after being told she needed to have a refused to let us do that she received some IV narcotic medication she wanted to wait and let see if that would work and basically refused to have her done on emergent basis, the heart rate tracing was reactive and that we are seeing may be inverted contractions on the monitor but it was hard to tell for sure. After 30 minutes to an hour the patient did have relief of that pain enough that she wanted to hold off doing her delivery. However because the patient is disintegrating mental status and inability to tolerate her condition I feel that she needs to have delivery at 36 weeks versus 37 weeks and this case and I explained to her this morning that was would be our plan to do her section at 36 weeks 0 days. Objective Vital Signs Vital Signs Date Time Temp Pulse Resp B/P (MAP) Pulse Ox O2 Delivery O2 Flow Rate FiO2 10/22/17 20:00 18 Lab & Micro Results Test 10/22/17 12:50 White Blood Count 9.8 TH/MM3 Red Blood Count 3.62 MIL/MM3 Hemoglobin 10.9 GM/DL Hematocrit 32.4 % Mean Corpuscular Volume 89.6 FL Mean Corpuscular Hemoglobin 30.1 PG Mean Corpuscular Hemoglobin Concent 33.6 % Red Cell Distribution Width 13.2 % Platelet Count 211 TH/MM3 Mean Platelet Volume 8.2 FL Date/Time Source Procedure Growth Status 10/19/17 03:45 Urine Clean Catch Urine Culture - Final Gardnerella Vaginalis Complete Physical Exam GENERAL: Well-nourished, well-developed patient. CARDIOVASCULAR: Regular rate and rhythm without murmurs, gallops, or rubs. RESPIRATORY: Breath sounds equal bilaterally. No accessory muscle use. ABDOMEN/GI: Abdomen soft, tender. Fundus: [-35] GENITOURINARY: External Genitalia: intact and normal in appearance FHT's: Category: [1-] Baseline: [-133] Reactive: [-R] Variability: [-mod] Decels: [-0] EXTREMITIES: No cyanosis or edema, non-tender, without signs of DVT. Assessment and Plan Problem List: (1) Placenta previa ICD Codes: O44.00 - Complete placenta previa NOS or without hemorrhage, unspecified trimester Qualifiers: Qualified Codes: O44.03 - Complete placenta previa nos or without hemorrhage , third trimester Assessment and Plan 32 y/o G1 @ 35.-36 wks who presented with vaginal bleeding. Ultrasound showing complete placenta previa. Patient is having extremely hard time staying in inpatient and tolerating inpatient care she has chronic pain and at times is exacerbated to severe intractable pain such as earlier today when she basically was offered a C- section to deliver then and there and she refused it because she did not want to deliver so early "hurt her baby" Long-term care for this patient in the hospital is not feasible I think the best we can do is get her to 36 weeks which is 2 more days and then do her C- section which we will plan to do Sekou Toussaint II, MD Oct 23, 2017 07:48
[2017-10-23] MEDS: SODIUM CHLORIDE 0.9% FLUSH 10 ML FLUSH IV FLUSH SCH ×2 (09:00→21:00)
[2017-10-23] MEDS: DOCUSATE SODIUM 100 MG CAP PO SCH (09:23)
[2017-10-23] MEDS: MULTIVIT/MIN/PREN/FOL AC/IRON PRENATAL TAB PO SCH (09:24)
[2017-10-23] MEDS: FERROUS SULFATE 325 MG (65 MG ELEMENTAL IRON) TAB PO SCH ×2 (09:24→21:24)
[2017-10-23] MEDS: metroNIDAZOLE 500 MG TAB PO SCH ×2 (09:24→21:24)
[2017-10-23] MEDS ORDERED: LORazepam 2 MG/ML VIAL IV PUSH PRN (10:15)
[2017-10-23] MEDS: ONDANSETRON ODT 4 MG TAB PO PRN (22:26)
[2017-10-24] VITALS (181 sets, daily range): BP systolic 114–123; BP diastolic 69–75; PULSE 53–89; RESP 17–18; TEMP 98–98.4
--- NOTE | 2017-10-24 07:30 | PD.OB.ANTE ---
Subjective Diagnosis: (1) Placenta previa Diagnosis: Principal (2) Vaginal bleeding in Diagnosis: Principal Interval History Patient is doing well this morning. She has no new complaints. She did have some bleeding overnight that was a bit more than usual but tolerable. She states that she is not anxious about her tomorrow because she prefers that it is scheduled. She denies fever or chills. Antepartum ROS: Reports: Vaginal bleeding, movement normal, Contractions , Denies: New complaints, Loss of fluid Objective Lab & Micro Results Date/Time Source Procedure Growth Status 10/19/17 03:45 Urine Clean Catch Urine Culture - Final Gardnerella Vaginalis Complete Physical Exam GENERAL: Well-nourished, well-developed patient. CARDIOVASCULAR: Regular rate and rhythm without murmurs, gallops, or rubs. RESPIRATORY: Breath sounds equal bilaterally. No accessory muscle use. ABDOMEN/GI: Abdomen soft, non-tender. Fundus: Gravid GENITOURINARY: Uterine Contractions: Infrequent, irritability seen FHT's: Category: I Baseline: 135 Reactive: accels present Variability: moderate Decels: none EXTREMITIES: No cyanosis or edema, non-tender, without signs of DVT. Assessment and Plan Problem List: (1) Placenta previa ICD Codes: O44.00 - Complete placenta previa NOS or without hemorrhage, unspecified trimester Qualifiers: Qualified Codes: O44.03 - Complete placenta previa nos or without hemorrhage , third trimester (2) Vaginal bleeding in ICD Codes: O46.90 - Antepartum hemorrhage, unspecified, unspecified trimester Assessment and Plan 32 y/o G1 @ 35/6 wks gestation who presented with vaginal bleeding. Ultrasound showed complete placenta previa. Completed steroid therapy Impression -FHT category I - reassuring -Still spotting daily -Pain of irregular contractions well controlled with oxycodone -Slept well overnight Plan -Continue routine care -Continue Flagyl for BV - starting day 3 of 7 today -Strict pad counts -Continuous monitoring -Plan for tomorrow 10/25/2017 at 9:[address] Norbert DEUTSCH with Keiry oJel MD R2 Oct 24, 2017 07:30
[2017-10-24] MEDS: DOCUSATE SODIUM 100 MG CAP PO SCH (08:44)
[2017-10-24] MEDS: metroNIDAZOLE 500 MG TAB PO SCH ×2 (08:44→21:01)
[2017-10-24] MEDS: FERROUS SULFATE 325 MG (65 MG ELEMENTAL IRON) TAB PO SCH ×2 (08:44→21:01)
[2017-10-24] MEDS: MULTIVIT/MIN/PREN/FOL AC/IRON PRENATAL TAB PO SCH (08:44)
[2017-10-24] MEDS: SODIUM CHLORIDE 0.9% FLUSH 10 ML FLUSH IV FLUSH SCH ×2 (08:45→19:44)
[2017-10-24] MEDS: ONDANSETRON ODT 4 MG TAB PO PRN (15:31)
[2017-10-25] VITALS (109 sets, daily range): BP systolic 107–137; BP diastolic 63–96; PULSE 55–88; RESP 15–18; TEMP 98.2–98.7; O2SAT 97–100
[2017-10-25 06:01] LABS: HEMATOCRIT 31.7 % (35.0-46.0); HEMOGLOBIN 10.9 GM/DL (11.6-15.3); MEAN CELL VOLUME 88.3 FL (80.0-100.0); MEAN CORPUSCULAR HEMOGLOBIN 30.4 PG (27.0-34.0); MEAN CORPUSCULAR HGB CONC 34.5 % (32.0-36.0); MEAN PLATELET VOLUME 8.4 FL (7.0-11.0); PLATELET COUNT 203 TH/MM3 (150-450); RED BLOOD COUNT 3.59 MIL/MM3 (4.00-5.30); WHITE BLOOD COUNT 10.2 TH/MM3 (4.0-11.0)
[2017-10-25] MEDS ORDERED: LACTATED RINGER'S 1000 ML INJ 1,000 ML IV ONE (08:24)
[2017-10-25] MEDS ORDERED: LACTATED RINGER'S 1000 ML INJ 1,000 ML IV SCH ×2 (08:54→15:18)
[2017-10-25] MEDS ORDERED: ACETAMINOPHEN 1000 MG/100 ML 100 ML IV ONE (09:08)
[2017-10-25] MEDS ORDERED: SODIUM CHLOR 0.9% 250 ML INJ 250 ML IV ONE (09:15)
[2017-10-25] MEDS ORDERED: fentaNYL CITRATE 250 MCG/5 ML AMP ONE (09:17)
[2017-10-25] MEDS ORDERED: MIDAZOLAM HCL 2 MG/2 ML VIAL ONE (09:17)
[2017-10-25] MEDS ORDERED: ceFAZolin 2 GM PREMIX 50 ML IV SCH (09:30)
[2017-10-25] MEDS ORDERED: CITRIC ACID-SODIUM CITRATE LIQ 30 ML UDC PO SCH (10:00)
[2017-10-25] MEDS ORDERED: OXYTOCIN 30 UNITS-500ML PREMIX 500 ML ONE (10:26)
[2017-10-25] MEDS ORDERED: DOCUSATE SODIUM 50 MG/SENNA 8.6 MG TAB PO PRN (10:30)
[2017-10-25] MEDS ORDERED: diphenhydrAMINE HCL 25 MG CAP PO PRN (10:30)
[2017-10-25] MEDS ORDERED: ACETAMINOPHEN 325 MG TAB PO PRN (10:30)
[2017-10-25] MEDS ORDERED: NALOXONE HCL 0.4 MG/ML AMP IV PUSH PRN (10:30)
[2017-10-25] MEDS ORDERED: ONDANSETRON ODT 4 MG TAB PO PRN (10:30)
[2017-10-25] MEDS ORDERED: OXYTOCIN 30 UNITS-500ML PREMIX 500 ML IV ONE (10:30)
[2017-10-25] MEDS ORDERED: SODIUM CHLORIDE 0.9% FLUSH 10 ML FLUSH IV FLUSH PRN (10:30)
[2017-10-25] MEDS ORDERED: oxyCODONE/ACETAMINOPHEN 5 MG/325 MG TAB PO PRN (10:30)
[2017-10-25] MEDS ORDERED: SIMETHICONE 80 MG CHEWABLE TAB PO PRN (10:30)
[2017-10-25] MEDS ORDERED: MORPHINE SULFATE 30 MG/30 ML PCA ONE (10:53)
--- NOTE | 2017-10-25 10:56 | MP ---
cc: Sekou Toussaint MD DATE OF OPERATION: 10/25/2017 PREOPERATIVE DIAGNOSIS: Placenta previa at 36 weeks. POSTOPERATIVE DIAGNOSIS: Placenta previa at 36 weeks. PROCEDURE PERFORMED: Primary low transverse section. SURGEON: MD Norbert AD COMPOSITOR: MD Jayla ANESTHESIA: General. PREOPERATIVE NOTE: The patient is a 32-year-old black female, G1, P0, 36 weeks' gestation today, who has been in the hospital about a week for bleeding placenta previa. She has been stable through the week, but has continued to have bleeding on and off and she has extreme anxiety because of this problem. It was felt that she needed to be delivered due to multiple factors. PROCEDURE: The patient was taken to the operating room and placed supine position on the operating table. She was prepped and draped appropriately, had a rapid sequence induction of general anesthetic. A transverse incision was made in the lower abdomen, carried to fascia sharply. The fascia was dissected off the rectus muscle, the rectus split in the midline and the peritoneal cavity entered sharply. Incision extended superiorly and inferiorly and bladder blade placed on the lower end of the incision. The visceral peritoneum was reflected off the lower uterine segment, placed on bladder blade. A transverse hysterotomy was made and extended bluntly bilaterally. Clear fluid noted after rupture of the membranes. The baby was delivered in vertex presentation. The baby is a male delivered at 9:39 a.m., weight 2575 grams and Apgars of 8 and 9, cord pH 7.40. Delayed cord clamping done. The baby had awaiting NICU staff. The placenta basically delivered itself with slight traction on the cord. The uterus was exteriorized and cleaned of all remnants and membranes. Then, hysterotomy was closed in running layer of 0 chromic followed by imbricating suture of same. Hemostasis achieved with a couple of stick ties. The peritoneum around the bladder was reapproximated with a running stitch of 2-0 Vicryl. The uterus was elevated and blood suctioned from cul-de-sac and gutters and uterus replaced in the peritoneal cavity. The parietal peritoneum was closed in running layer of 2-0 Vicryl. Rectus muscle was reapproximated with stick ties of chromic and Vicryl. Fascia closed in running lateral of Vicryl. Skin closed with a 3-0 Monocryl subcuticular stitch. A pressure dressing applied. Estimated blood loss was 500 mL. There were no complications. Sponge, needle and instrument counts correct x2. The patient was taken to the recovery room in stable condition. MD KARIS Mccarthy/CRISTY , 10:42 AM , 10:55 AM
[2017-10-25] MEDS: MORPHINE SULFATE 30 MG/30 ML PCA IV SCH (10:59)
[2017-10-25] MEDS ORDERED: MORPHINE SULFATE 4 MG/ML INJ ONE (11:24)
[2017-10-25] MEDS ORDERED: MORPHINE SULFATE 4 MG/ML INJ IV PUSH ONE (11:29)
[2017-10-25] MEDS ORDERED: PCA - TOTAL MG MORPHINE DELIVERED PER SHIFT SCH (14:00)
[2017-10-25] MEDS ORDERED: OXYTOCIN 30 UNITS-500ML PREMIX 500 ML IV PRN (15:30)
[2017-10-25] MEDS ORDERED: ZOLPIDEM TARTRATE 5 MG TAB PO PRN (21:00)
[2017-10-26 01:59] VITALS: RESP 16
[2017-10-26] MEDS: MORPHINE SULFATE 30 MG/30 ML PCA IV SCH (03:09)
[2017-10-26 04:15] VITALS: BP 120/59; PULSE 59; RESP 18; RESP 9; TEMP 98.2; O2SAT 97
[2017-10-26 06:00] LABS: AUTOMATED NEUTROPHIL # 15.7 TH/MM3 (1.8-7.7); BASOPHIL % 0.2 % (0.0-2.0); EOSINOPHIL % 0.1 % (0.0-4.0); HEMATOCRIT 23.2 % (35.0-46.0); HEMOGLOBIN 7.8 GM/DL (11.6-15.3); LYMPH % 11.9 % (9.0-44.0); LYMPHOCYTE # 2.3 TH/MM3 (1.0-4.8); MEAN CELL VOLUME 87.9 FL (80.0-100.0); MEAN CORPUSCULAR HEMOGLOBIN 29.7 PG (27.0-34.0); MEAN CORPUSCULAR HGB CONC 33.7 % (32.0-36.0); MEAN PLATELET VOLUME 8.1 FL (7.0-11.0); MONO % 7.4 % (0.0-8.0); MONOCYTE # 1.5 TH/MM3 (0-0.9); NEUT % 80.4 % (16.0-70.0); PLATELET COUNT 202 TH/MM3 (150-450); RED BLOOD COUNT 2.64 MIL/MM3 (4.00-5.30); RED CELL DISTRIBUTION WIDTH 13.4 % (11.6-17.2); WHITE BLOOD COUNT 19.6 TH/MM3 (4.0-11.0)
--- NOTE | 2017-10-26 07:25 | HHI.OB ---
Subjective Post Operative Day: 1 Remarks Postoperative day # 1 . AFVSS overnight. Pain will controlled. Incision clean, dry, and intact, not draining. Lochia less than a period. Denies dysuria. No breast tenderness. She is feeding the baby via breast. Appetite good. No nausea or vomiting. Positive flatus. No bowel movement. Ambulating well. Denies fever, chills, cough, shortness of breath, chest pain, and calf pain. Otherwise, she is doing well this morning and has no other complaints. Objective Vitals/I&O Vital Signs Date Time Temp Pulse Resp B/P (MAP) Pulse Ox O2 Delivery O2 Flow Rate FiO2 10/26/17 04:15 98.2 59 9 120/59 (79) 97 10/26/17 04:15 18 10/26/17 03:09 18 10/26/17 01:59 16 10/25/17 23:30 72 18 135/75 (95) 98 10/25/17 23:30 98.2 10/25/17 23:00 18 10/25/17 20:00 98.3 69 18 121/66 (84) 97 10/25/17 11:32 98.7 10/25/17 11:30 75 134/78 (96) 10/25/17 11:30 18 100 10/25/17 11:11 68 17 133/75 (94) 100 10/25/17 11:07 80 18 133/63 (86) 100 10/25/17 10:59 17 10/25/17 10:55 68 18 100 10/25/17 10:55 137/96 (110) 10/25/17 10:40 73 107/63 (78) 10/25/17 10:40 15 100 10/25/17 10:25 125/64 (84) 10/25/17 10:25 98.3 10/25/17 10:25 15 100 10/25/17 10:25 80 10/25/17 08:20 65 10/25/17 08:15 60 10/25/17 08:13 17 10/25/17 08:13 98.7 10/25/17 08:10 69 10/25/17 08:10 73 120/76 (91) 10/25/17 08:05 63 10/25/17 08:00 66 10/25/17 07:55 63 10/25/17 07:40 65 10/25/17 07:35 71 10/25/17 07:30 64 Result Diagram: 10/26/17 0516 Objective Remarks GENERAL: Well-nourished, well-developed patient. CARDIOVASCULAR: Regular rate and rhythm without murmurs, gallops, or rubs. RESPIRATORY: Breath sounds equal bilaterally. No accessory muscle use. ABDOMEN/GI: Abdomen soft, non-tender, bowel sounds present. Incision: Clean, dry and intact. Pressure dressing in place Fundus: Firm, non-tender at umbilicus. GENITOURINARY: Light to moderate bleeding. EXTREMITIES: No cyanosis or edema, non-tender, without signs of DVT. Medications and IVs Current Medications Medications (Trade) Dose Ordered Sig/Myke Route Start Time Stop Time Status Last Admin Lactated Ringer's 1,000 ml @ 100 mls/hr Q10H IV 10/25/17 15:18 10/26/17 11:17 10/26/17 02:04 Oxytocin 500 ml @ 100 mls/hr UNSCH X1 PRN IV 10/25/17 15:30 10/26/17 15:29 (NS Flush) 2 ml BID IV FLUSH 10/25/17 21:00 (NS Flush) 2 ml UNSCH PRN IV FLUSH 10/25/17 10:30 (Mylicon Chew) 80 mg QID PRN PO 10/25/17 10:30 (Tylenol) 650 mg Q6H PRN PO 10/25/17 10:30 (Motrin) 600 mg Q6H PRN PO 10/25/17 10:30 (Percocet 5-325 Mg) 1 tab Q4H PRN PO 10/25/17 10:30 (Percocet 5-325 Mg) 2 tab Q4H PRN PO 10/25/17 10:30 (Mignon-Colace) 2 tab Q12H PRN PO 10/25/17 10:30 (Ambien) 5 mg HS PRN PO 10/25/17 21:00 (M-M-R Ii Inj) 0.5 ml ONCE ONCE SQ 10/26/17 16:00 10/26/17 16:01 (Boostrix Inj) 0.5 ml ONCE ONCE IM 10/26/17 16:00 10/26/17 16:01 (Zofran Odt) 4 mg Q4H PRN PO 10/25/17 10:30 10/25/17 13:01 (Narcan Inj) 0.4 mg UNSCH PRN IV PUSH 10/25/17 10:30 (Benadryl) 25 mg Q6H PRN PO 10/25/17 10:30 (Morphine 1 Mg/ ml PUNCHER AND FASTENER) 30 mg UNSCH IV 10/25/17 10:30 10/26/17 03:09 PUNCHER AND FASTENER Dosage Infused (Pha) 1 Q8HR .XX 10/25/17 14:00 10/25/17 23:00 Assessment/Plan Problem List: (1) Placenta previa ICD Codes: O44.00 - Complete placenta previa NOS or without hemorrhage, unspecified trimester Qualifiers: Qualified Codes: O44.03 - Complete placenta previa nos or without hemorrhage , third trimester (2) Vaginal bleeding in ICD Codes: O46.90 - Antepartum hemorrhage, unspecified, unspecified trimester Assessment and Plan 32 y/o female who is POD#1 s/p CS for placenta previa -Continue routine care -Percocet and Motrin PRN pain -Pericolase PRN for constipation -Encouraged OOB. Advised pelvic rest for 6 wks -Will need a follow-up appointment within 1 week for incision check - pt to report to the L&D because she had a buffer inflated pad -Re: ctrl - patient would like OCPs Discussed with Dr. Robert Discharge Planning Plan to discharge home in 1-2 days Keiry Garcia MD R2 Oct 26, 2017 07:25
[2017-10-26] MEDS: oxyCODONE/ACETAMINOPHEN 5 MG/325 MG TAB PO PRN ×3 (08:04→21:18)
[2017-10-26] MEDS: IBUPROFEN 600 MG TAB PO PRN (08:04)
[2017-10-26] MEDS: SODIUM CHLORIDE 0.9% FLUSH 10 ML FLUSH IV FLUSH SCH (09:00)
[2017-10-26] MEDS ORDERED: DIPHTH/TETANUS/ACEL PERTUSSIS (BOOSTER) 0.5 ML VIAL/PFS IM ONE (16:00)
[2017-10-26] MEDS ORDERED: MEASLES, MUMPS, RUBELLA VACCINE 0.5 ML VIAL SQ ONE (16:00)
[2017-10-26 20:00] VITALS: BP 111/69; PULSE 67; RESP 18; TEMP 98.9; O2SAT 97
[2017-10-27] MEDS: oxyCODONE/ACETAMINOPHEN 5 MG/325 MG TAB PO PRN ×4 (01:38→13:46)
--- NOTE | 2017-10-27 07:43 | HHI.OB ---
Subjective Post Operative Day: 2 Remarks Postoperative day # 2 . AFVSS overnight. Pain will controlled. Incision clean, dry, and intact, not draining. Lochia less than a period. Denies dysuria. No breast tenderness. She is feeding the baby via breast. Appetite good. No nausea or vomiting. Positive flatus. No bowel movement. Ambulating well. Denies fever, chills, cough, shortness of breath, chest pain, and calf pain. Otherwise, she is doing well this morning and has no other complaints. She would like to go home today. Objective Vitals/I&O Vital Signs Date Time Temp Pulse Resp B/P (MAP) Pulse Ox O2 Delivery O2 Flow Rate FiO2 10/26/17 20:00 98.9 10/26/17 20:00 67 18 97 10/26/17 20:00 111/69 (83) Result Diagram: 10/26/17 0516 Objective Remarks GENERAL: Well-nourished, well-developed patient. CARDIOVASCULAR: Regular rate and rhythm without murmurs, gallops, or rubs. RESPIRATORY: Breath sounds equal bilaterally. No accessory muscle use. ABDOMEN/GI: Abdomen soft, non-tender, bowel sounds present. Incision: Clean, dry and intact. Fundus: Firm, mildly tender at umbilicus. GENITOURINARY: Light to moderate bleeding. EXTREMITIES: No cyanosis or edema, non-tender, without signs of DVT. Medications and IVs Current Medications Medications (Trade) Dose Ordered Sig/Myke Route Start Time Stop Time Status Last Admin (NS Flush) 2 ml BID IV FLUSH 10/25/17 21:00 (NS Flush) 2 ml UNSCH PRN IV FLUSH 10/25/17 10:30 (Mylicon Chew) 80 mg QID PRN PO 10/25/17 10:30 (Tylenol) 650 mg Q6H PRN PO 10/25/17 10:30 (Motrin) 600 mg Q6H PRN PO 10/25/17 10:30 10/26/17 08:04 (Percocet 5-325 Mg) 1 tab Q4H PRN PO 10/25/17 10:30 (Percocet 5-325 Mg) 2 tab Q4H PRN PO 10/25/17 10:30 10/27/17 05:42 (Mignon-Colace) 2 tab Q12H PRN PO 10/25/17 10:30 10/26/17 09:33 (Ambien) 5 mg HS PRN PO 10/25/17 21:00 (Zofran Odt) 4 mg Q4H PRN PO 10/25/17 10:30 10/25/17 13:01 (Benadryl) 25 mg Q6H PRN PO 10/25/17 10:30 10/26/17 10:47 Assessment/Plan Problem List: (1) Placenta previa ICD Codes: O44.00 - Complete placenta previa NOS or without hemorrhage, unspecified trimester Qualifiers: Qualified Codes: O44.03 - Complete placenta previa nos or without hemorrhage , third trimester (2) Vaginal bleeding in ICD Codes: O46.90 - Antepartum hemorrhage, unspecified, unspecified trimester Assessment and Plan 32 y/o female who is POD#2 s/p CS for placenta previa -Continue routine care -Percocet and Motrin PRN pain -Pericolase PRN for constipation -Encouraged OOB. Advised pelvic rest for 6 wks -Will need a follow-up appointment within 1 week for incision check - pt to report to the L&D because she had a program arranger for care -Re: ctrl - patient would like OCPs Discussed with Dr. Bernard Discharge Planning Plan to discharge home in 1-2 days Keiry Garcia MD R2 Oct 27, 2017 07:43
[2017-10-27 08:00] VITALS: BP 121/72; PULSE 75; RESP 20; TEMP 98.4; O2SAT 100
[2017-10-27] MEDS ORDERED: SIMETHICONE 125 MG CHEWABLE TAB PO SCH (08:00)
[2017-10-27] MEDS ORDERED: DOCUSATE SODIUM 100 MG CAP PO SCH (09:00)
[2017-10-27] MEDS: SODIUM CHLORIDE 0.9% FLUSH 10 ML FLUSH IV FLUSH SCH (09:00)
[2017-10-27 09:26] LABS: AUTOMATED NEUTROPHIL # 15.8 TH/MM3 (1.8-7.7); BASOPHIL # 0.1 TH/MM3 (0-0.2); BASOPHIL % 0.5 % (0.0-2.0); EOSINOPHIL # 0.1 TH/MM3 (0-0.4); EOSINOPHIL % 0.6 % (0.0-4.0); HEMATOCRIT 24.4 % (35.0-46.0); HEMOGLOBIN 8.3 GM/DL (11.6-15.3); LYMPH % 11.5 % (9.0-44.0); LYMPHOCYTE # 2.2 TH/MM3 (1.0-4.8); MEAN CELL VOLUME 89.1 FL (80.0-100.0); MEAN CORPUSCULAR HEMOGLOBIN 30.1 PG (27.0-34.0); MEAN CORPUSCULAR HGB CONC 33.8 % (32.0-36.0); MEAN PLATELET VOLUME 7.6 FL (7.0-11.0); MONO % 5.4 % (0.0-8.0); PLATELET COUNT 238 TH/MM3 (150-450); RED BLOOD COUNT 2.74 MIL/MM3 (4.00-5.30); RED CELL DISTRIBUTION WIDTH 13.2 % (11.6-17.2); WHITE BLOOD COUNT 19.3 TH/MM3 (4.0-11.0)
[2017-10-27] MEDS ORDERED: FERR325T18 PO (10:32)
[2017-10-27] MEDS ORDERED: OXYC1TAB63 PO (10:32)
[2017-10-27] MEDS ORDERED: DOCU1CAP39 PO (10:32)
[2017-10-27] MEDS ORDERED: IBUP-232 PO (10:32)
[2017-10-27] MEDS ORDERED: ACET325T15 PO (10:33)
--- NOTE | 2017-10-27 10:33 | HHI.DCPOC ---
Discharge Care Plan Diagnosis: (1) delivery delivered (2) Placenta previa Report Symptoms to Your Doctor -Temperature above 100.5 degrees -Redness, of incision or excessive or foul smelling drainage -Unusual pain or calf pain -Increased vaginal bleeding -Painful or difficulty urinating -Feelings of extreme sadness or anxiety after 2 weeks Goals to Promote Your Health * To prevent worsening of your condition and complications * To maintain your health at the optimal level Directions to Meet Your Goals Take your medications as prescribed Follow your dietary instruction Follow activity as directed Ensure plenty of rest for recovery Drink fluids for hydration Keep your appointments as scheduled Take your immunizations and boosters as scheduled If your symptoms worsen call your PCP, if no PCP go to Urgent Care Center or Emergency Room Smoking is Dangerous to Your Health. Avoid second hand smoke Call the 24-hour crisis hotline for domestic abuse at Claudy Guido MD R1 Oct 27, 2017 10:33
[2017-10-27] MEDS: IBUPROFEN 600 MG TAB PO PRN (13:01)
== END 2017-10-27 13:49 | disposition home or self-care (01) | DRG 765 ==
LOC: HOBED 01:25 → H2EB 03:24 → OBSVTOIN 03:24 → H1EA 10-25 11:56
PROVIDERS: ADMIT Obstetrics & Gynecology; ATTEND Obstetrics & Gynecology
PROC: 10D00Z1 Extraction of Products of Conception, Low, Open Approach (ICD-10-PCS; principal; 2017-10-25)
DX: O44.13 Complete placenta previa with hemorrhage, third trimester (principal); O99.354 Diseases of the nervous system complicating childbirth; G89.29 Other chronic pain; Z3A.35 35 weeks gestation of pregnancy; Z37.0 Single live birth
CPT/HCPCS: 76816; 76819; 80048; 80076; 80307; 81001; 82805; 84112; 85025; 85027; 86850; 86900; 86901; 86920; 87086; 88307; 99285; G0481; J0131; J0690; J0702; J0780; J2250; J2270; J2590; J3010; J7120; Q0177